=== PATIENT | female | born 1955 | race Caucasian/White ===

== ENCOUNTER → 2016-11-16 | Outpatient (CLI) | payer BC ==
[~2016-11-16] MED LIST: ACETAMINOPHEN1 EACH PO; ALEVE220 M1 PO; ASPIRIN EC81 MG PO; BIOTIN1 M1 PO; CITRACAL+D(315M1 TAB PO; DYAZIDE 37.5-21 EACH PO; FISH OIL 1,2001 EACH PO; GLUCOSAMINE CH1 EAC1 PO; PRILOSEC20 MG PO; PRINIVIL (ZESTR20 MG PO; TENORMIN50 MG PO; TYLENOL EXTRA500 MG PO; ZOCOR40 MG PO
== END | disposition disaster alternative care site (69) ==
LOC: GBCOE 11-15 16:00
DX: Z12.31 Encounter for screening mammogram for malignant neoplasm of breast (principal)
CPT/HCPCS: G0202